=== PATIENT | male | born 1990 | race Caucasian/White ===

== ENCOUNTER 2021-07-14 21:06 | Inpatient (IN) | payer OTHER ==
[2021-07-14] MEDS ORDERED: DIAZEPAM 5 MG/ML 2 ML INJ IVP STA (21:46)
[2021-07-14] MEDS ORDERED: LORazepam 2 MG/ML INJ IV STA (21:46)
[2021-07-14] MEDS ORDERED: SODIUM CHLORIDE 0.9% 500 ML 500 ML IV STA (21:46)
[2021-07-14] MEDS ORDERED: SODIUM CHLORIDE 0.9% 1,000 ML IV STA ×2 (21:46)
[2021-07-14] MEDS ORDERED: levETIRAcetam IV 1,000 MG in SALINE 1 100ML.BAG IVPB STA (21:46)
--- NOTE | 2021-07-14 21:46 | ED ---
Seizure HPI - General Chief Complaint: Seizure Stated Complaint: Seizure Time Seen by Provider: 07/14/21 21:24 Source: patient, EMS Mode of arrival: EMS - Related Data Home Medications Medication Instructions Recorded Confirmed Acetaminophen Tab [Tylenol] 650 mg PO Q4H PRN 07/14/21 07/14/21 Buprenorphine HCl/Naloxone HCl 1 film SUBLINGUAL DAILY 07/14/21 07/14/21 [Suboxone 2 mg-0.5 mg Sl Film] Calcium/Magnesium/Vit D3/[place] 1 tab PO TID PRN 07/14/21 07/14/21 [Calcium-Mag Oxide-Vit D3 Sftgl] Chlorpheniramine Maleate 4 mg PO Q4H PRN 07/14/21 07/14/21 [Chlor-Trimeton] Desvenlafaxine Succinate [Pristiq] 50 mg PO DAILY 07/14/21 07/14/21 Ibuprofen 600 mg PO Q6H PRN 07/14/21 07/14/21 LORazepam [Ativan] 1 dose PO DIRECTED 07/14/21 07/14/21 Loperamide HCl [Imodium A-D] 4 mg PO Q6H PRN 07/14/21 07/14/21 Mag Hydrox/Aluminum Hyd/Simeth 30 ml PO Q4H PRN 07/14/21 07/14/21 [Mylanta Maximum Strength Liq] Mirtazapine 45 mg PO HS 07/14/21 07/14/21 Prazosin HCl 2 mg PO HS 07/14/21 07/14/21 cloNIDine HCL [Catapres] 0.1 - 0.3 mg PO Q4H PRN 07/14/21 07/14/21 haloperidoL [Haloperidol] 2 mg PO BID 07/14/21 07/14/21 levETIRAcetam 1,000 mg PO BID 07/14/21 07/14/21 ondansetron HCL [Zofran] 8 mg PO Q6H PRN 07/14/21 07/14/21 Allergies Allergy/AdvReac Type Severity Reaction Status Date / Time No Known Allergies Allergy Verified 07/14/21 22:41 Review of Systems ROS Statement: Those systems with pertinent positive or pertinent negative responses have been documented in the HPI. ROS Other: All systems not noted in ROS Statement are negative. Course Vital Signs 07/14/21 07/14/21 21:15 23:09 Temperature 98.2 F Pulse Rate 84 81 Respiratory 18 18 Rate Blood Pressure 122/102 137/89 O2 Sat by Pulse 98 98 Oximetry Medical Decision Making - Lab Data Result diagrams: 07/14/21 22:21 07/14/21 22:21 Lab Results 07/14/21 07/14/21 07/14/21 Range/Units 22:21 22:21 22:21 WBC 7.6 (3.8-10.6) k/uL RBC 4.03 L (4.30-5.90) m/uL Hgb 13.6 (13.0-17.5) gm/dL Hct 40.6 (39.0-53.0) % MCV 100.8 H (80.0-100.0) fL MCH 33.8 (25.0-35.0) pg MCHC 33.5 (31.0-37.0) g/dL RDW 13.1 (11.5-15.5) % Plt Count 157 (150-450) k/uL MPV 8.2 Neutrophils % 78 % Lymphocytes % 10 % Monocytes % 8 % Eosinophils % 2 % Basophils % 0 % Neutrophils # 6.0 (1.3-7.7) k/uL Lymphocytes # 0.8 L (1.0-4.8) k/uL Monocytes # 0.6 (0-1.0) k/uL Eosinophils # 0.2 (0-0.7) k/uL Basophils # 0.0 (0-0.2) k/uL Sodium 133 L (137-145) mmol/L Potassium 4.8 (3.5-5.1) mmol/L Chloride 104 (98-107) mmol/L Carbon Dioxide 24 (22-30) mmol/L Anion Gap 5 mmol/L BUN 12 (9-20) mg/dL Creatinine 0.58 L (0.66-1.25) mg/dL Est GFR (CKD-EPI)AfAm >90 (>60 ml/min/1.73 sqM) Est GFR (CKD-EPI)NonAf >90 (>60 ml/min/1.73 sqM) Glucose 90 (74-99) mg/dL Calcium 9.6 (8.4-10.2) mg/dL Magnesium 2.3 (1.6-2.3) mg/dL Total Bilirubin 0.6 (0.2-1.3) mg/dL AST 80 H (17-59) U/L ALT 122 H (4-49) U/L Alkaline Phosphatase 102 (38-126) U/L Total Protein 7.2 (6.3-8.2) g/dL Albumin 4.6 (3.5-5.0) g/dL Salicylates <1.0 mg/dL Urine Opiates Screen Not Detected (NotDetected) Ur Oxycodone Screen Not Detected (NotDetected) Urine Methadone Screen Not Detected (NotDetected) Ur Propoxyphene Screen Not Detected (NotDetected) Acetaminophen <10.0 ug/mL Ur Barbiturates Screen Detected H (NotDetected) U Tricyclic Antidepress Not Detected (NotDetected) Ur Phencyclidine Scrn Not Detected (NotDetected) Ur Amphetamines Screen Not Detected (NotDetected) U Methamphetamines Scrn Not Detected (NotDetected) U Benzodiazepines Scrn Detected H (NotDetected) Urine Cocaine Screen Not Detected (NotDetected) U Marijuana (THC) Screen Not Detected (NotDetected) Serum Alcohol <10 mg/dL - EKG Data -: EKG Interpreted by Me (EKG is sinus rhythm 79 MT 160 QRS 100 QTc 410) Disposition Clinical Impression: Epileptic seizure, generalized, Alcohol withdrawal Disposition: ADMITTED IP TO THIS [facility] Condition: Fair Instructions (If sedation given, give patient instructions): Seizure/Epilepsy Discharge Instructions & Follow-Up Is patient prescribed a controlled substance at d/c from ED?: No Referrals: Nonstaff,Physician [Primary Care Provider] - 1-2 days
[2021-07-14 22:26] LABS: Basophils % (A) 0 %; Eosinophils # (A) 0.2 k/uL (0-0.7); Eosinophils % (A) 2 %; HCT 40.6 % (39.0-53.0); HGB 13.6 gm/dL (13.0-17.5); Lymphocytes # (A) 0.8 k/uL (1.0-4.8); Lymphocytes % (A) 10 %; MCH 33.8 pg (25.0-35.0); MCHC 33.5 g/dL (31.0-37.0); MCV 100.8 fL (80.0-100.0); Mean Platelet Volume 8.2; Monocytes # (A) 0.6 k/uL (0-1.0); Monocytes % (A) 8 %; Neutrophils % (A) 78 %; Platelet Count 157 k/uL (150-450); RBC 4.03 m/uL (4.30-5.90); RDW 13.1 % (11.5-15.5); WBC 7.6 k/uL (3.8-10.6)
[2021-07-14 22:36] LABS: ALT 122 U/L (4-49); AST 80 U/L (17-59); Acetaminophen <10.0 ug/mL; African American GFR (CKD) >90 (>60 ml/min/1.73 sqM); Albumin 4.6 g/dL (3.5-5.0); Alcohol <10 mg/dL; Alkaline Phosphatase 102 U/L (38-126); Anion Gap 5 mmol/L; Blood Urea Nitrogen 12 mg/dL (9-20); Calcium 9.6 mg/dL (8.4-10.2); Carbon Dioxide 24 mmol/L (22-30); Chloride 104 mmol/L (98-107); Glucose 90 mg/dL (74-99); Magnesium 2.3 mg/dL (1.6-2.3); Non-African American GFR(CKD) >90 (>60 ml/min/1.73 sqM); Potassium 4.8 mmol/L (3.5-5.1); Salicylate <1.0 mg/dL; Sodium 133 mmol/L (137-145); Total Bilirubin 0.6 mg/dL (0.2-1.3); Total Protein 7.2 g/dL (6.3-8.2)
[2021-07-14 22:40] LABS: Urn Cannabinoid Scrn Not Detected (NotDetected)
[2021-07-14 22:41] LABS: Amphetamine Screen,Urine Not Detected (NotDetected); Barbiturate Screen,Urine Detected (NotDetected); Benzodiazepines Screen,Urine Detected (NotDetected); Cocaine Screen,Urine Not Detected (NotDetected); Methadone Screen, Urine Not Detected (NotDetected); Opiate Screen,Urine Not Detected (NotDetected); Oxycodone Screen, Urine Not Detected (NotDetected); Phencyclidine Screen,Urine Not Detected (NotDetected); Tricyclic Antidepressant,Urine Not Detected (NotDetected)
[2021-07-14] MEDS ORDERED: THIAMINE 100 MG/ML 2 ML VIAL IM STA (23:09)
[2021-07-14] MEDS ORDERED: ONDANSETRON 4 MG/2 ML VIAL IVP PRN (23:09)
[2021-07-14] MEDS ORDERED: LORazepam 2 MG/ML INJ IV PRN ×2 (23:09)
[2021-07-14] MEDS ORDERED: NALOXONE 0.4 MG/ML 1 ML VIAL IV PRN (23:09)
[2021-07-15] MEDS: THIAMINE 100 MG TAB PO SCH ×3 (00:15→16:54)
[2021-07-15] MEDS: SODIUM CHLORIDE 0.9% 1,000 ML IV SCH ×4 (00:20→20:25)
[2021-07-15] MEDS: LORazepam 2 MG/ML INJ IV PRN ×8 (00:36→22:03)
[2021-07-15 04:25] LABS: African American GFR (CKD) >90 (>60 ml/min/1.73 sqM); Anion Gap 5 mmol/L; Blood Urea Nitrogen 12 mg/dL (9-20); Calcium 8.5 mg/dL (8.4-10.2); Carbon Dioxide 21 mmol/L (22-30); Chloride 108 mmol/L (98-107); Glucose 106 mg/dL (74-99); Magnesium 2.2 mg/dL (1.6-2.3); Non-African American GFR(CKD) >90 (>60 ml/min/1.73 sqM); Phosphorus 4.4 mg/dL (2.5-4.5); Potassium 3.8 mmol/L (3.5-5.1); Sodium 134 mmol/L (137-145)
[2021-07-15 04:51] LABS: HCT 38.6 % (39.0-53.0); HGB 12.7 gm/dL (13.0-17.5); MCH 33.9 pg (25.0-35.0); MCHC 32.9 g/dL (31.0-37.0); MCV 102.8 fL (80.0-100.0); Macrocytosis Slight; Mean Platelet Volume 7.2; Platelet Count 141 k/uL (150-450); RBC 3.75 m/uL (4.30-5.90); RDW 13.3 % (11.5-15.5); WBC 5.2 k/uL (3.8-10.6)
--- NOTE | 2021-07-15 05:49 | P.HPIM ---
History of Present Illness H&P Date: 07/15/21 Chief Complaint: seizure 31 year old male with seizure disorder and alcohol abuse patient comes from [facility] for repeated episodes of seizure, he claims that he has been there for a week , for alcohol rehab. however, today he comes in after repeated episodes of seizures, he says this happens frequently and his seizures are poorly controlled, despite claiming to be compliant with his meds. last time he had multiple seizures like today was about a month ago. today he denies any loss of bladder or bowel control , but he did bite his upper lip which is swollen now. and he is feeling foggy at this time . he otherwise denies any headache, changes in his vision , or hearing , denies any focal neuro deficits, denies any abd pain , chest pain or trouble breathing, denies any fever, chills, changes in his bowel or urinary habits. he admits to poly substance abuse , but nothing recently , and claims that he has been at [facility] for about a week now. workup in the ED , blood work showed some hyponatremia, and mild elevation of liver enzymes, urine drug screen positive for benzo, alcohol level is <10 Review of Systems Pertinent positives as noted in HPI. All other systems were reviewed and are negative Past Medical History Additional Past Medical History / Comment(s): seizure , polysubstance abuse - Past Family History family Family Medical History: No Reported History Medications and Allergies Home Medications Medication Instructions Recorded Confirmed Type Acetaminophen Tab [Tylenol] 650 mg PO Q4H PRN 07/14/21 07/14/21 History Buprenorphine HCl/Naloxone HCl 1 film SUBLINGUAL DAILY 07/14/21 07/14/21 History [Suboxone 2 mg-0.5 mg Sl Film] Calcium/Magnesium/Vit D3/[place] 1 tab PO TID PRN 07/14/21 07/14/21 History [Calcium-Mag Oxide-Vit D3 Sfl] Chlorpheniramine Maleate 4 mg PO Q4H PRN 07/14/21 07/14/21 History [Chlor-Trimeton] Desvenlafaxine Succinate [Pristiq] 50 mg PO DAILY 07/14/21 07/14/21 History Ibuprofen 600 mg PO Q6H PRN 07/14/21 07/14/21 History LORazepam [Ativan] 1 dose PO DIRECTED 07/14/21 07/14/21 History Loperamide HCl [Imodium A-D] 4 mg PO Q6H PRN 07/14/21 07/14/21 History Mag Hydrox/Aluminum Hyd/Simeth 30 ml PO Q4H PRN 07/14/21 07/14/21 History [Mylanta Maximum Strength Liq] Mirtazapine 45 mg PO HS 07/14/21 07/14/21 History Prazosin HCl 2 mg PO HS 07/14/21 07/14/21 History cloNIDine HCL [Catapres] 0.1 - 0.3 mg PO Q4H PRN 07/14/21 07/14/21 History haloperidoL [Haloperidol] 2 mg PO BID 07/14/21 07/14/21 History levETIRAcetam 1,000 mg PO BID 07/14/21 07/14/21 History ondansetron HCL [Zofran] 8 mg PO Q6H PRN 07/14/21 07/14/21 History Allergies Allergy/AdvReac Type Severity Reaction Status Date / Time No Known Allergies Allergy Verified 07/14/21 22:41 Physical Exam Vitals: Vital Signs Temp Pulse Resp BP Pulse Ox 07/14/21 23:09 81 18 137/89 98 07/14/21 21:15 98.2 F 84 18 122/102 98 Intake and Output 07/14/21 07/14/21 07/15/21 14:59 22:59 06:59 Other: Weight 88.904 kg Constitutional: No acute distress, conversant Eyes: Anicteric sclerae, moist conjunctiva, Pupils equal round reactive to light ENMT: swelling and bruising over left upper lip Oropharynx clear, no erythema, or exudates Neck: Supple, FROM, no masses, or JVD No carotid bruits No thyromegaly Lungs: Clear to auscultation Clear to percussion Normal respiratory effort, no accessory muscle use Cardiovascular: Heart regular in rate and rhythm, No murmurs, gallops, or rubs No peripheral edema Abdominal: Soft Nontender, no guarding, rebound or rigidity Abdomen moving with respiration Normoactive bowel sounds No hepatomegaly, No splenomegaly No palpable mass No abdominal wall hernia noted Skin: Normal temperature, tone, texture, turgor No induration No subcutaneous nodules No rash, lesions No ulcers Extremities: No digital cyanosis No clubbing Pedal pulses intact and symmetrical Radial pulses intact and symmetrical No calf tenderness Psychiatric: Alert and oriented to person, place flat affect Neuro Muscles Strength 5/5 in all 4 extremities Sensation to light touch grossly present throughout Cranial nerves II-XII grossly intact No focal sensory deficits Lymphatics: no palpable cervical or supraclavicular , or inguinal lymph nodes Results CBC & Chem 7: 07/15/21 03:20 07/15/21 03:20 Labs: Abnormal Lab Results - Last 24 Hours (Table) 07/14/21 07/14/21 07/14/21 Range/Units 22:21 22:21 22:21 RBC 4.03 L (4.30-5.90) m/uL Hgb (13.0-17.5) gm/dL Hct (39.0-53.0) % MCV 100.8 H (80.0-100.0) fL Plt Count (150-450) k/uL Lymphocytes # 0.8 L (1.0-4.8) k/uL Sodium 133 L (137-145) mmol/L Chloride (98-107) mmol/L Carbon Dioxide (22-30) mmol/L Creatinine 0.58 L (0.66-1.25) mg/dL Glucose (74-99) mg/dL AST 80 H (17-59) U/L ALT 122 H (4-49) U/L Ur Barbiturates Screen Detected H (NotDetected) U Benzodiazepines Scrn Detected H (NotDetected) 07/15/21 07/15/21 Range/Units 03:20 03:20 RBC 3.75 L (4.30-5.90) m/uL Hgb 12.7 L (13.0-17.5) gm/dL Hct 38.6 L (39.0-53.0) % MCV 102.8 H (80.0-100.0) fL Plt Count 141 L (150-450) k/uL Lymphocytes # (1.0-4.8) k/uL Sodium 134 L (137-145) mmol/L Chloride 108 H (98-107) mmol/L Carbon Dioxide 21 L (22-30) mmol/L Creatinine 0.51 L (0.66-1.25) mg/dL Glucose 106 H (74-99) mg/dL AST (17-59) U/L ALT (4-49) U/L Ur Barbiturates Screen (NotDetected) U Benzodiazepines Scrn (NotDetected) Assessment and Plan Assessment: breakthrough seizures check keppra level alcohol withdrawal precautions , benzo per CIWA , thiamine seizure precautions resume keppra neuro consult mild hyponatremia , IVF hydration with normal saline polysubstance abuse will send patient back to [facility] for rehab once cleared by neurology depression resume home meds acute transaminitis , most likely secondary to alcohol abuse monitor liver enzymes if starts trending up, will consider liver workup CODE STATUS:full code DVT prophylaxis: mechanical Discussed with: Patient, ER Anticipated length of stay < than [address]: [facility] A total of 65 minutes was spent on the care of this complex patient more than 50% of the time was spent in counseling and care coordination.
[2021-07-15] MEDS ORDERED: levETIRAcetam 500 MG TAB PO SCH (09:00)
[2021-07-15] MEDS: MULTIVITAMINS, THERA 1 EACH TAB PO SCH (10:17)
[2021-07-15] MEDS: DESVENLAFAXINE SUCCINATE 50 MG TAB.ER.24H PO SCH (10:17)
[2021-07-15] MEDS: PANTOPRAZOLE 40 MG/10 ML VIAL IV SCH (10:17)
[2021-07-15] MEDS: Buprenorphine Hcl/Naloxone Hcl [Suboxone 2 Mg-0.5 Mg Sl Film] 1 EACH F SUBLINGUAL SCH ×2 (12:52→16:51)
--- NOTE | 2021-07-15 14:28 | P.CNNES ---
History of Present Illness Consult date: 07/15/21 Requesting physician: Don Soto Reason for Consult: Seizure History of Present Illness: Patient is a 31-year-old male came to the hospital by ambulance at 9:06 PM. According to EMS flow sheet, when they arrived, patient was at [facility]. Patient was found sitting in a wheelchair. Patient was breathing at an adequate rate. Nurse claimed that patient had a seizure around 10 minutes prior to their arrival lasted about a minute and a half. Per the nursing staff, patient did not fall but may have hurt the back of his head on the wall during the seizure. No lacerations or any signs of trauma. Patient is an [facility] for rehabilitation from alcohol and the last drink when he was admitted on 07/09/2021. Patient has mentioned that he has history of seizure since 2007. He gets an aura in which he gets very sweaty and nauseous. Patient has mentioned that he was having visual and auditory hallucinations recently and does have a history of delirium tremens. Patient has mentioned that he was drinking a gallon and a half of vodka a day before going into rehab. Patient denied any chest pain, shortness of breath, headache. Patient had visible tremors in his hands. Patient's vitals at the scene was blood pressure 137/75, pulse rate 100 respiration 18 and saturation 97% and blood glucose 113. EKG shows normal sinus rhythm. Patient's blood test shows WBC 7.6 hemoglobin 13.6 with elevated MCV 100.8. Platelets are normal. Sodium 133 potassium 4.8, normal renal functions. AST is 80, ALT 122. Urine drug screen positive for barbiturate and benzodiazepine. Blood alcohol level negative. Keppra level is pending. Patient takes Keppra 1000 mg twice a day, Haldol 2 mg twice a day, Pristiq 50 mg, lorazepam 1 mg as directed. Also on Suboxone, clonidine 0.1 mg every 4 hours when necessary, Remeron 45 mg at bedtime. Patient states that he has history of seizure disorder since he was age 18. He has ">150 seizures"in his lifetime. Patient states that he had 4 grand mal seizures about a month ago, in which she had laceration on his left upper lip. He has previously bitten his tongue and lost control of urine, but did not with these episodes. Patient follows up with neurologist Dr. Figueroa in [facility]. Patient states that while he was in detox at [facility], they cut back on his Ativan faster, which probably related to the seizure. Patient jennie brothers is on Keppra 1500 mg twice a day. Since he went into [facility], he could not find the bottle indicating the dose of Keppra 1500 mg twice a day. Therefore they decreased the dose to the last documentation of Keppra 1000 mg twice a day. Patient however states that he has seizures while on Keppra 1500 mg twice a day. He feels that his seizures are refractory to Keppra. Patient denies any use of drugs. Review of Systems Patient complains of tremulousness. Denies any tongue bite. No chest pain, abdominal pain nausea vomiting diarrhea. Past Medical History Additional Past Medical History / Comment(s): seizure , polysubstance abuse History of Any Multi-Drug Resistant Organisms: None Reported Past Surgical History: Appendectomy, Cholecystectomy Past Psychological History: Anxiety, Bipolar, Depression, PTSD Smoking Status: Current every day smoker Past Alcohol Use History: Abuse Additional Past Alcohol Use History / Comment(s): 2 gallons of vodka daily per p atient - Past Family History family Family Medical History: No Reported History Medications and Allergies Home Medications Medication Instructions Recorded Confirmed Type Acetaminophen Tab [Tylenol] 650 mg PO Q4H PRN 07/14/21 07/14/21 History Buprenorphine HCl/Naloxone HCl 1 film SUBLINGUAL DAILY 07/14/21 07/14/21 History [Suboxone 2 mg-0.5 mg Sl Film] Calcium/Magnesium/Vit D3/[place] 1 tab PO TID PRN 07/14/21 07/14/21 History [Calcium-Mag Oxide-Vit D3 Sftgl] Chlorpheniramine Maleate 4 mg PO Q4H PRN 07/14/21 07/14/21 History [Chlor-Trimeton] Desvenlafaxine Succinate [Pristiq] 50 mg PO DAILY 07/14/21 07/14/21 History Ibuprofen 600 mg PO Q6H PRN 07/14/21 07/14/21 History LORazepam [Ativan] 1 dose PO DIRECTED 07/14/21 07/14/21 History Loperamide HCl [Imodium A-D] 4 mg PO Q6H PRN 07/14/21 07/14/21 History Mag Hydrox/Aluminum Hyd/Simeth 30 ml PO Q4H PRN 07/14/21 07/14/21 History [Mylanta Maximum Strength Liq] Mirtazapine 45 mg PO HS 07/14/21 07/14/21 History Prazosin HCl 2 mg PO HS 07/14/21 07/14/21 History cloNIDine HCL [Catapres] 0.1 - 0.3 mg PO Q4H PRN 07/14/21 07/14/21 History haloperidoL [Haloperidol] 2 mg PO BID 07/14/21 07/14/21 History ondansetron HCL [Zofran] 8 mg PO Q6H PRN 07/14/21 07/14/21 History Multivitamins, Thera [Multivitamin 1 each PO DAILY tab 07/16/21 Rx (formulary)] Thiamine [Vitamin B-1] 100 mg PO BID-W/MEALS tab 07/16/21 Rx levETIRAcetam [Keppra] 1,500 mg PO Q12HR #120 tab 07/16/21 Rx Allergies Allergy/AdvReac Type Severity Reaction Status Date / Time No Known Allergies Allergy Verified 07/14/21 22:41 Physical Examination - Vital Signs Vital Signs: Vital Signs Temp Pulse Pulse Resp BP BP Pulse Ox 07/15/21 08:00 98 F 66 18 117/72 99 07/14/21 23:09 81 18 137/89 98 07/14/21 21:15 98.2 F 84 18 122/102 98 Intake and Output 07/14/21 07/15/21 07/15/21 22:59 06:59 14:59 Other: Weight 88.904 kg 88.904 kg Patient is a young male, in no acute distress. Patient is alert awake oriented to time place and person. Speech and language functions are normal. Attention, concentration and fund of knowledge is adequate. On cranial examination, pupils are round and reacting to light, visual mata are full on confrontation, extraocular muscles are intact with no nystagmus. Face is symmetric, tongue protrudes to the midline. Palatal elevation and sensation normal, hearing and shoulder shrug normal, facial sensation normal. Patient has slightly swollen left upper lip, which he believes is from the seizure a month ago when he fell and hit his head on the floor for which she was admitted to [facility] in [facility]. On muscle strength testing, there is no pronator drift and the strength is normal in arms and legs distally and proximally. Deep tendon reflexes are 1 all over, 2 at the ankles and plantars downgoing. Sensory to touch is equal with no neglect. Cerebellar function showed no ataxia for [id number] testing. No dysdiadochokinesia. Tone and bulk of muscles normal. Patient does have tremors of outstretched hands, also has tremors for [id number] testing. No tremors at rest. Gait normal. On general examination, there is no carotid bruit or murmur, S1-S2 audible. Abdomen is soft nontender. Chest is clear. Peripheral pulses are present. No edema. Results - Laboratory Findings CBC and BMP: 07/15/21 03:20 07/15/21 03:20 Abnormal Lab Findings: Abnormal Labs 07/14/21 07/14/21 07/14/21 22:21 22:21 22:21 RBC 4.03 L Hgb Hct MCV 100.8 H Plt Count Lymphocytes # 0.8 L Sodium 133 L Chloride Carbon Dioxide Creatinine 0.58 L Glucose AST 80 H ALT 122 H Ur Barbiturates Screen Detected H U Benzodiazepines Scrn Detected H 07/15/21 07/15/21 03:20 03:20 RBC 3.75 L Hgb 12.7 L Hct 38.6 L MCV 102.8 H Plt Count 141 L Lymphocytes # Sodium 134 L Chloride 108 H Carbon Dioxide 21 L Creatinine 0.51 L Glucose 106 H AST ALT Ur Barbiturates Screen U Benzodiazepines Scrn Assessment and Plan Assessment: * Breakthrough seizure, possible related to alcohol withdrawal. Patient in mild delirium tremens, with tremors of his hands. * History of seizure disorder since age 18. Patient states that he gets seizures, which are related to alcoholism, as well as gets seizures when he is not drinking and not related to alcohol. Rule out underlying epilepsy. * Chronic alcoholism. * Macrocytosis due to above. Plan: * We will increase Keppra to 1500 mg twice a day. * EEG to evaluate for underlying epileptiform activity. * Patient is currently in delirium tremens. Continue CIWA protocol. * Patient was informed of [place] state law of no driving, unless seizure free for 6 months, climbing ladders, operating dangerous machinery or unsupervised swimming. * Discussed with primary physician.
[2021-07-15] MEDS: cloNIDine HCL 0.1 MG TAB PO SCH ×2 (15:07→20:21)
[2021-07-15] MEDS ORDERED: NICOTINE 14MG/24HR PATCH TRANSDERM STA (20:17)
[2021-07-15] MEDS ORDERED: MIRTAZAPINE 45 MG TABLET PO SCH (21:00)
[2021-07-15] MEDS ORDERED: PRAZOSIN 1 MG CAP PO SCH (21:00)
[2021-07-16] MEDS: SODIUM CHLORIDE 0.9% 1,000 ML IV SCH ×2 (04:49→12:17)
[2021-07-16] MEDS: cloNIDine HCL 0.1 MG TAB PO SCH (07:29)
[2021-07-16] MEDS: MULTIVITAMINS, THERA 1 EACH TAB PO SCH (07:29)
[2021-07-16] MEDS: THIAMINE 100 MG TAB PO SCH (07:29)
[2021-07-16] MEDS: PANTOPRAZOLE 40 MG/10 ML VIAL IV SCH (07:30)
[2021-07-16] MEDS: DESVENLAFAXINE SUCCINATE 50 MG TAB.ER.24H PO SCH (07:30)
[2021-07-16] MEDS: Buprenorphine Hcl/Naloxone Hcl [Suboxone 2 Mg-0.5 Mg Sl Film] 1 EACH F SUBLINGUAL SCH (08:09)
[2021-07-16 08:12] VITALS: BP 109/67; PULSE 59; RESP 17; TEMP 98.1
--- NOTE | 2021-07-16 12:52 | EEG ---
ELECTROENCEPHALOGRAM REPORT DATE OF SERVICE: 07/16/2021 PREAMBLE: This is a 31-year-old male with recurrent seizures. This study is performed to evaluate for any epileptiform activity. EEG FINDINGS: This is a 21-channel routine EEG recording in a patient utilizing 10/20 international system with referential and bipolar montages. Background consists of well developed, well regulated, moderate voltage activity in 8-9 hertz alpha. Background is posterior- dominant and reactive to eye opening and closing. Photic driving response was seen with some flash frequencies. Intermittent focal slowing in delta range was seen in bitemporal region. No focal or generalized epileptiform activity was seen. Some drowsiness was seen, but deeper stages of sleep were not attained. Hyperventilation revealed no abnormalities. IMPRESSION: This is an abnormal EEG due to presence of intermittent bitemporal slowing. This is suggestive of focal cortical neural dysfunction and may suggest underlying structural abnormality. No epileptiform activity was seen. MMODL / IJN: [id number] /
--- NOTE | 2021-07-16 13:34 | P.PN ---
Subjective Progress Note Date: 07/16/21 Patient feels fine, wants to go home. Objective - Vital Signs Vital signs: Vital Signs Temp 98.1 F 07/16/21 08:12 Pulse 59 L 07/16/21 08:12 Resp 17 07/16/21 08:12 BP 109/67 07/16/21 08:12 Pulse Ox 98 07/16/21 08:12 Intake & Output 07/15/21 07/16/21 07/16/21 18:59 06:59 18:59 Weight 88.904 kg Other: Voiding Method Toilet # Voids 2 - Exam Normal. - Labs CBC & Chem 7: 07/15/21 03:20 07/15/21 03:20 Assessment and Plan Assessment: * Breakthrough seizure, possible related to alcohol withdrawal. Status post delirium tremens. * History of seizure disorder since age 18. Patient states that he gets seizures, which are related to alcoholism, as well as gets seizures when he is not drinking and not related to alcohol. Rule out underlying epilepsy. * Chronic alcoholism. * Macrocytosis due to above. Plan: * Continue Keppra to 1500 mg twice a day. * EEG was performed, which was abnormal due to intermittent bitemporal slowing. This is suggestive of focal cortical neuronal dysfunction and may suggest underlying structural abnormality. No epileptiform activity was seen. * Start Vimpat 50 mg twice a day. Recommend patient follow up with neurologist as outpatient in 2-3 weeks. * Patient appears to be more comfortable. * Patient was informed of [place] state law of no driving, unless seizure free for 6 months, climbing ladders, operating dangerous machinery or unsupervised swimming. * Neurologically clear for discharge.
[2021-07-16] MEDS ORDERED: LACOSAMIDE 50 MG TABLET PO SCH (13:45)
--- NOTE | 2021-07-16 18:07 | P.DS ---
Providers Date of admission: 07/14/21 23:09 Expected date of discharge: 07/16/21 Attending physician: Jayleen Hernandez MD Consults: 07/14/21 23:11 Consult Physician Routine Consulting Provider: Norberto Carr Consult Reason/Comments: sz Do you want consulting provider notified?: Yes Primary care physician: Physician Nonstaff Hospital Course: 31 year old male with seizure disorder and alcohol abuse patient comes from [facility] for repeated episodes of seizure, he claims that he has been there for a week , for alcohol rehab. however, today he comes in after repeated episodes of seizures, he says this happens frequently and his seizures are poorly controlled, despite claiming to be compliant with his meds. last time he had multiple seizures like today was about a month ago. today he denies any loss of bladder or bowel control , but he did bite his upper lip which is swollen now. and he is feeling foggy at this time . he otherwise denies any headache, changes in his vision , or hearing , denies any focal neuro deficits, denies any abd pain , chest pain or trouble breathing, denies any fever, chills, changes in his bowel or urinary habits. he admits to poly substance abuse , but nothing recently , and claims that he has been at [facility] for about a week now. workup in the ED , blood work showed some hyponatremia, and mild elevation of liver enzymes, urine drug screen positive for benzo, alcohol level is <10 Breakthrough Seizures Alcohol withdrawal syndrome Polysubstance abuse Patient was admitted to the hospital for breakthrough seizures and alcohol withdrawal, required multiple rounds of benzodiazepine for elevated CIWA scores. He also had Suboxone withdrawal symptoms which were treated with clonidine and Zofran when necessary. Neurology was consult and recommended EEG. Patient ultimately had his Keppra uptitrated as well as a new medication for Vimpat. He was back to his usual baseline upon discharge, instructed to return to [facility] for rehab as well as to follow-up with neurology in 2-3 weeks. Depression resumed home meds Assessment: Gen: awake, alert HEENT: normocephalic, atraumatic, good hearing acuity, moist mucous membranes Resp: good air exchange, breathing comfortably with no accessory muscle use CVS: good distal perfusion x 4, GI: soft, NTTP, ND : no SPT, no CVAT, cheek catheter not present MSK: no pitting edema, no clubbing Neuro: non-focal, moving all extremities Psych: cooperative, euthymic mood Patient Condition at Discharge: Good Plan - Discharge Summary New Discharge Prescriptions: New Multivitamins, Thera [Multivitamin (formulary)] 1 each PO DAILY tab levETIRAcetam [Keppra] 1,500 mg PO Q12HR #120 tab Thiamine [Vitamin B-1] 100 mg PO BID-W/MEALS tab Lacosamide [Vimpat] 50 mg PO BID #60 tab Continue Acetaminophen Tab [Tylenol] 650 mg PO Q4H PRN PRN Reason: Pain Ibuprofen 600 mg PO Q6H PRN PRN Reason: Pain Loperamide HCl [Imodium A-D] 4 mg PO Q6H PRN PRN Reason: Diarrhea Chlorpheniramine Maleate [Chlor-Trimeton] 4 mg PO Q4H PRN PRN Reason: Allergy Symptoms Mirtazapine 45 mg PO HS Mag Hydrox/Aluminum Hyd/Simeth [Mylanta Maximum Strength Liq] 30 ml PO Q4H PRN PRN Reason: Gi Upset cloNIDine HCL [Catapres] 0.1 - 0.3 mg PO Q4H PRN PRN Reason: BP OVER 160/100 Calcium/Magnesium/Vit D3/[place] [Calcium-Mag Oxide-Vit D3 Sftgl] 1 tab PO TID PRN PRN Reason: SUPPLEMENT Buprenorphine HCl/Naloxone HCl [Suboxone 2 mg-0.5 mg Sl Film] 1 film SUBLINGUAL DAILY Prazosin HCl 2 mg PO HS LORazepam [Ativan] 1 dose PO DIRECTED haloperidoL [Haloperidol] 2 mg PO BID Desvenlafaxine Succinate [Pristiq] 50 mg PO DAILY ondansetron HCL [Zofran] 8 mg PO Q6H PRN PRN Reason: Nausea And Vomiting Discontinued levETIRAcetam 1,000 mg PO BID Discharge Medication List Acetaminophen Tab [Tylenol] 650 mg PO Q4H PRN 07/14/21 [History] Buprenorphine HCl/Naloxone HCl [Suboxone 2 mg-0.5 mg Sl Film] 1 film SUBLINGUAL DAILY 07/14/21 [History] Calcium/Magnesium/Vit D3/[place] [Calcium-Mag Oxide-Vit D3 Sftgl] 1 tab PO TID PRN 07/14/21 [History] Chlorpheniramine Maleate [Chlor-Trimeton] 4 mg PO Q4H PRN 07/14/21 [History] Desvenlafaxine Succinate [Pristiq] 50 mg PO DAILY 07/14/21 [History] Ibuprofen 600 mg PO Q6H PRN 07/14/21 [History] LORazepam [Ativan] 1 dose PO DIRECTED 07/14/21 [History] Loperamide HCl [Imodium A-D] 4 mg PO Q6H PRN 07/14/21 [History] Mag Hydrox/Aluminum Hyd/Simeth [Mylanta Maximum Strength Liq] 30 ml PO Q4H PRN 07/14/21 [History] Mirtazapine 45 mg PO HS 07/14/21 [History] Prazosin HCl 2 mg PO HS 07/14/21 [History] cloNIDine HCL [Catapres] 0.1 - 0.3 mg PO Q4H PRN 07/14/21 [History] haloperidoL [Haloperidol] 2 mg PO BID 07/14/21 [History] ondansetron HCL [Zofran] 8 mg PO Q6H PRN 07/14/21 [History] Lacosamide [Vimpat] 50 mg PO BID #60 tab 07/16/21 [Rx] Multivitamins, Thera [Multivitamin (formulary)] 1 each PO DAILY tab 07/16/21 [Rx] Thiamine [Vitamin B-1] 100 mg PO BID-W/MEALS tab 07/16/21 [Rx] levETIRAcetam [Keppra] 1,500 mg PO Q12HR #120 tab 07/16/21 [Rx] Follow up Appointment(s)/Referral(s): Nonstaff,Physician [Primary Care Provider] - 1-2 days Patient Instructions/Handouts: Epilepsy (DC), Alcohol Withdrawal (DC) Activity/Diet/Wound Care/Special Instructions: NO DRIVING UNTIL 6 MONTHS FREE OF SEIZURES. NO CLIMBING LADDERS, OPERATING DANGEROUS MACHINERY OR UNSUPERVISED SWIMMING. Discharge Disposition: HOME SELF-CARE
== END 2021-07-16 14:43 | disposition home or self-care (01) | DRG 101 ==
LOC: EC 21:06 → 4SSUR 23:09
PROVIDERS: ADMIT Internal Medicine; ATTEND Internal Medicine
PROC: HZ2ZZZZ Detoxification Services for Substance Abuse Treatment (ICD-10-PCS; principal; 2021-07-14)
DX: G40.419 Other generalized epilepsy and epileptic syndromes, intractable, without status epilepticus (principal); E87.1 Hypo-osmolality and hyponatremia; F10.231 Alcohol dependence with withdrawal delirium; F13.20 Sedative, hypnotic or anxiolytic dependence, uncomplicated; D75.89 Other specified diseases of blood and blood-forming organs; F17.210 Nicotine dependence, cigarettes, uncomplicated; F31.9 Bipolar disorder, unspecified; F41.9 Anxiety disorder, unspecified; F43.10 Post-traumatic stress disorder, unspecified; Z79.899 Other long term (current) drug therapy; Z90.49 Acquired absence of other specified parts of digestive tract
CPT/HCPCS: 36415; 80048; 80053; 80143; 80177; 80179; 80306; 80320; 83735; 84100; 85025; 93005; 95816; 96365; 96375; 99285

== ENCOUNTER 2021-07-19 08:22 | Emergency (ER) | payer OTHER ==
[2021-07-19 08:28] VITALS: BP 121/76; PULSE 104; RESP 18; TEMP 98.3
--- NOTE | 2021-07-19 09:04 | ED ---
General Adult HPI - General Chief complaint: Seizure Stated complaint: Seizure Time Seen by Provider: 07/19/21 08:25 Source: patient, EMS, RN notes reviewed, old records reviewed Mode of arrival: EMS Limitations: no limitations - History of Present Illness Initial comments: This is a 31-year-old male with past medical history significant for heroin abus e and alcohol abuse. Patient also has a history of seizures. Patient currently is at [facility] for alcohol abuse. Patient states he had a seizure on Wednesday was kept overnight in the hospital and sent home with an increased dose of Keppra and started on Vimpat. Patient states today he had another seizure according to staff last about a minute patient states currently he feels back to his baseline. Patient states he hasn't had a drink in 10 days. Patient states normally he has a seizure 7-8 days after he had a drink. Patient denies any headache patient denies numbness weakness. Patient denies chest pain difficult breathing shortness of breath. Patient denies any fever chills or cough. - Related Data Home Medications Medication Instructions Recorded Confirmed Acetaminophen Tab [Tylenol] 650 mg PO Q4H PRN 07/14/21 07/19/21 Buprenorphine HCl/Naloxone HCl 1 film SUBLINGUAL DAILY 07/14/21 07/19/21 [Suboxone 2 mg-0.5 mg Sl Film] Chlorpheniramine Maleate 4 mg PO Q4H PRN 07/14/21 07/19/21 [Chlor-Trimeton] Desvenlafaxine Succinate [Pristiq] 50 mg PO DAILY 07/14/21 07/19/21 Ibuprofen 600 mg PO Q6H PRN 07/14/21 07/19/21 LORazepam [Ativan] 1 dose PO DIRECTED 07/14/21 07/19/21 Loperamide HCl [Imodium A-D] 4 mg PO Q6H PRN 07/14/21 07/19/21 Mag Hydrox/Aluminum Hyd/Simeth 30 ml PO Q4H PRN 07/14/21 07/19/21 [Mylanta Maximum Strength Liq] Mirtazapine 45 mg PO HS 07/14/21 07/19/21 Prazosin HCl 2 mg PO HS 07/14/21 07/19/21 cloNIDine HCL [Catapres] 0.1 - 0.3 mg PO Q4H PRN 07/14/21 07/19/21 haloperidoL [Haloperidol] 2 mg PO BID 07/14/21 07/19/21 ondansetron HCL [Zofran] 8 mg PO Q6H PRN 07/14/21 07/19/21 Calc/Magn/Zinc+D 1 tab PO TID PRN 07/19/21 07/19/21 Multivitamins, Thera [Multivitamin 1 tab PO DAILY 07/19/21 07/19/21 (formulary)] Previous Rx's Medication Instructions Recorded Lacosamide [Vimpat] 50 mg PO BID #60 tab 07/16/21 Thiamine [Vitamin B-1] 100 mg PO BID-W/MEALS tab 07/16/21 levETIRAcetam [Keppra] 1,500 mg PO Q12HR #120 tab 07/16/21 Allergies Allergy/AdvReac Type Severity Reaction Status Date / Time No Known Allergies Allergy Verified 07/19/21 08:53 Review of Systems ROS Statement: Those systems with pertinent positive or pertinent negative responses have been documented in the HPI. ROS Other: All systems not noted in ROS Statement are negative. Past Medical History Additional Past Medical History / Comment(s): seizure , polysubstance abuse History of Any Multi-Drug Resistant Organisms: None Reported Past Surgical History: Appendectomy, Cholecystectomy Past Psychological History: Anxiety, Bipolar, Depression, PTSD Smoking Status: Current every day smoker Past Alcohol Use History: Abuse Additional Past Alcohol Use History / Comment(s): 2 gallons of vodka daily per patient - Past Family History family Family Medical History: No Reported History General Exam - General Exam Comments Initial Comments: GENERAL: Patient is well-developed and well-nourished. Patient is nontoxic and well-h ydrated and is in no acute distress. ENT: Neck is soft and supple. No significant lymphadenopathy is noted. Oropharynx is clear. Moist mucous membranes. Neck has full range of motion without elic iting any pain. EYES: The sclera were anicteric and conjunctiva were pink and moist. Extraocular movements were intact and pupils were equal round and reactive to light. Eyelids were unremarkable. PULMONARY: Unlabored respirations. Good breath sounds bilaterally. No audible rales rhonchi or wheezing was noted. CARDIOVASCULAR: There is a regular rate and rhythm without any murmurs gallops or rubs. ABDOMEN: Soft and nontender with normal bowel sounds. SKIN: Skin is clear with no lesions or rashes and otherwise unremarkable. NEUROLOGIC: Patient is alert and oriented x3. Cranial nerves II through XII are grossly intact. Motor and sensory are also intact. Normal speech, volume and content. Symmetrical smile. MUSCULOSKELETAL: Normal extremities with adequate strength and full range of motion. LYMPHATICS: No significant lymphadenopathy is noted PSYCHIATRIC: Normal psychiatric evaluation. Limitations: no limitations Course Vital Signs 07/19/21 08:24 Temperature 98.3 F Pulse Rate 104 H Respiratory 18 Rate Blood Pressure 121/76 O2 Sat by Pulse 98 Oximetry Medical Decision Making - Medical Decision Making I spoke with Dr. Vaughan and he wanted the patient to increase his Vimpat from 50 twice a day to 100 twice a day. He did not think it was necessary to admit the patient. - Lab Data Result diagrams: 07/19/21 09:00 07/19/21 09:00 Lab Results 07/19/21 07/19/21 Range/Units 09:00 09:00 WBC 5.5 (3.8-10.6) k/uL RBC 4.07 L (4.30-5.90) m/uL Hgb 14.1 (13.0-17.5) gm/dL Hct 41.0 (39.0-53.0) % MCV 100.7 H (80.0-100.0) fL MCH 34.7 (25.0-35.0) pg MCHC 34.4 (31.0-37.0) g/dL RDW 13.4 (11.5-15.5) % Plt Count 270 (150-450) k/uL MPV 6.5 Neutrophils % 71 % Lymphocytes % 15 % Monocytes % 11 % Eosinophils % 1 % Basophils % 0 % Neutrophils # 3.9 (1.3-7.7) k/uL Lymphocytes # 0.8 L (1.0-4.8) k/uL Monocytes # 0.6 (0-1.0) k/uL Eosinophils # 0.1 (0-0.7) k/uL Basophils # 0.0 (0-0.2) k/uL Sodium 139 (137-145) mmol/L Potassium 4.1 (3.5-5.1) mmol/L Chloride 106 (98-107) mmol/L Carbon Dioxide 25 (22-30) mmol/L Anion Gap 8 mmol/L BUN 13 (9-20) mg/dL Creatinine 0.62 L (0.66-1.25) mg/dL Est GFR (CKD-EPI)AfAm >90 (>60 ml/min/1.73 sqM) Est GFR (CKD-EPI)NonAf >90 (>60 ml/min/1.73 sqM) Glucose 76 (74-99) mg/dL Calcium 9.8 (8.4-10.2) mg/dL Total Bilirubin 0.3 (0.2-1.3) mg/dL AST 34 (17-59) U/L ALT 81 H (4-49) U/L Alkaline Phosphatase 61 (38-126) U/L Total Protein 6.8 (6.3-8.2) g/dL Albumin 4.3 (3.5-5.0) g/dL Disposition Clinical Impression: Generalized seizure Disposition: HOME SELF-CARE Instructions (If sedation given, give patient instructions): Seizure/Epilepsy Discharge Instructions & Follow-Up, Recurrent Seizures in Adults (ED) Additional Instructions: Patient should increase his impact from 50 mg twice a day to 100 mg twice a day Referrals: Nonstaff,Physician [Primary Care Provider] - 1-2 days Time of Disposition: 09:45
[2021-07-19 09:30] LABS: ALT 81 U/L (4-49); AST 34 U/L (17-59); African American GFR (CKD) >90 (>60 ml/min/1.73 sqM); Albumin 4.3 g/dL (3.5-5.0); Alkaline Phosphatase 61 U/L (38-126); Anion Gap 8 mmol/L; Blood Urea Nitrogen 13 mg/dL (9-20); Calcium 9.8 mg/dL (8.4-10.2); Carbon Dioxide 25 mmol/L (22-30); Chloride 106 mmol/L (98-107); Glucose 76 mg/dL (74-99); Non-African American GFR(CKD) >90 (>60 ml/min/1.73 sqM); Potassium 4.1 mmol/L (3.5-5.1); Sodium 139 mmol/L (137-145); Total Bilirubin 0.3 mg/dL (0.2-1.3); Total Protein 6.8 g/dL (6.3-8.2)
[2021-07-19 09:33] LABS: Basophils % (A) 0 %; Eosinophils # (A) 0.1 k/uL (0-0.7); Eosinophils % (A) 1 %; HGB 14.1 gm/dL (13.0-17.5); Lymphocytes # (A) 0.8 k/uL (1.0-4.8); Lymphocytes % (A) 15 %; MCH 34.7 pg (25.0-35.0); MCHC 34.4 g/dL (31.0-37.0); MCV 100.7 fL (80.0-100.0); Mean Platelet Volume 6.5; Monocytes # (A) 0.6 k/uL (0-1.0); Monocytes % (A) 11 %; Neutrophils # (A) 3.9 k/uL (1.3-7.7); Neutrophils % (A) 71 %; Platelet Count 270 k/uL (150-450); RBC 4.07 m/uL (4.30-5.90); RDW 13.4 % (11.5-15.5); WBC 5.5 k/uL (3.8-10.6)
[2021-07-19] MEDS: LACOSAMIDE 50 MG TABLET PO STA (10:03)
== END 2021-07-19 10:08 | disposition home or self-care (01) ==
LOC: EC 08:22
DX: R56.9 Unspecified convulsions (principal); F31.9 Bipolar disorder, unspecified; F41.9 Anxiety disorder, unspecified; F17.200 Nicotine dependence, unspecified, uncomplicated
CPT/HCPCS: 36415; 80053; 80177; 85025; 99285